=== PATIENT | female | born 1945 | race Caucasian/White ===

== ENCOUNTER 2019-04-17 14:26 | Emergency (ER) | payer MEDICARE, OTHER ==
--- NOTE | 2019-04-17 17:09 | ED ---
Allergic Reaction/Systemic - HPI Summary HPI Summary: This patient is a 73 year old F presenting to [facility] accompanied by female friend with a chief complaint of nausea and vomiting since 1330 today 04/17/19, per triage. Symptoms aggravated by nothing. Symptoms alleviated by nothing. Patient reports she was at a green party where she ate raw broccoli and cauliflower after which her whole esophagus filled up with gurgling stuff that was going up and down for 10 minutes. Pt reports she could not talk, was dizzy, her chest felt slightly heavy, and was slightly short of breath. Her female friend said she was diaphoretic and shaky. Denies hx chest problems, diabetes. Hx low blood pressure, Hypercholesterolemia. Denies heart attack in family at her age. Denies taking periodic medication. - History of Current Complaint Chief Complaint: EDNauseaVomitDiarrh Time Seen by Provider: 04/17/19 16:52 Hx Obtained From: Patient, Other: - female friend Onset/Duration: Started hours ago, Resolved Severity Currently: None Pain Intensity: 0 Pain Scale Used: 0-10 Numeric Aggravating Factor(s): Nothing Alleviating Factor(s): Nothing Associated Signs And Symptoms: Positive: Chest Pain - heavy chest, Diaphoresis, Difficulty Breathing - slightly SOB, Nausea, Vomiting, Other: - shakey, dizzy, could not talk - Allergies/Home Medications Allergies/Adverse Reactions: Allergies Allergy/AdvReac Type Severity Reaction Status Date / Time latex Allergy Rash Verified 04/17/19 14:32 Sulfa (Sulfonamide Allergy Unknown Verified 04/17/19 14:32 Antibiotics) Reaction Details PMH/Surg Hx/FS Hx/Imm Hx Endocrine/Hematology History: Denies: Hx Diabetes Musculoskeletal History: Reports: Hx Arthritis Sensory History: Reports: Hx Cataracts Opthamlomology History: Reports: Hx Cataracts - Surgical History Surgery Procedure, Year, and Place: kidney stone, tonsillectomy Infectious Disease History: No Infectious Disease History: Denies: Traveled Outside the [place] in Last 30 Days - Family History Known Family History: Positive: Other - uterine cancer, alzheimer's - Social History Alcohol Use: Occasionally Hx Substance Use: No Substance Use Type: Reports: None Hx Tobacco Use: No Smoking Status (MU): Never Smoked Tobacco Review of Systems Positive: Skin Diaphoresis, Other - shakey Positive: Other - could not talk Positive: Chest Pain - heavy Positive: Shortness Of Breath Positive: Vomiting, Nausea Neurological: Other - dizzy All Other Systems Reviewed And Are Negative: Yes Physical Exam - Summary Physical Exam Summary: VITAL SIGNS: Reviewed. GENERAL: Patient is a well-developed and nourished FEMALE who is lying comfortable in the stretcher. Patient is not in any acute respiratory distress. HEAD AND FACE: No signs of trauma. No ecchymosis, hematomas or skull depressions. No sinus tenderness. EYES: PERRLA, EOMI x 2, No injected conjunctiva, no nystagmus. EARS: Hearing grossly intact. Ear canals and tympanic membranes are within normal limits. MOUTH: Oropharynx within normal limits. NECK: Supple, trachea is midline, no adenopathy, no JVD, no carotid bruit, no c- spine tenderness, neck with full ROM. CHEST: Symmetric, no tenderness at palpation. LUNGS: Clear to auscultation bilaterally. No wheezing or crackles. CVS: Regular rate and rhythm, S1 and S2 present, no murmurs or gallops appreciated. ABDOMEN: Soft, non-tender. No signs of distention. No rebound, no guarding, and no masses palpated. Bowel sounds are normal. EXTREMITIES: FROM in all major joints, no edema, no cyanosis or clubbing. NEURO: Alert and oriented x 3. No acute neurological deficits. Speech is normal and follows commands. SKIN: Dry and warm. Triage Information Reviewed: Yes Vital Signs On Initial Exam: Initial Vitals Temp Pulse Resp BP Pulse Ox 97.8 F 64 16 206/86 99 04/17/19 14:28 04/17/19 14:28 04/17/19 14:28 04/17/19 14:28 04/17/19 14:28 Vital Signs Reviewed: Yes Procedures - Sedation Patient Received Moderate/Deep Sedation with Procedure: No Diagnostics - Vital Signs Vital Signs Temp Pulse Resp BP Pulse Ox 04/17/19 14:28 97.8 F 64 16 206/86 99 - Laboratory Result Diagrams: 04/17/19 17:02 04/17/19 17:02 Lab Statement: Any lab studies that have been ordered have been reviewed, and results considered in the medical decision making process. - Radiology Chest X-Ray Radiology Interpretation Completed By: Radiologist Summary of Radiographic Findings: Per radiologist,. No acute cardiopulmonary process by radiograph. ED physician has reviewed this imaging report. - EKG 1702 Cardiac Rate: NL - 73 BPM Summary of EKG Findings: EKG taken at 1702 reveals sinus rhythm at [address] elevation and normal axis. Allergic Reaction Course/Dx - Course Assessment/Plan: This patient is a 73 year old F presenting to [facility] accompanied by female friend with a chief complaint of nausea and vomiting since 1330 today 04/17/19, per triage. Symptoms aggravated by nothing. Symptoms alleviated by nothing. Patient reports she was at a green party where she ate raw broccoli and cauliflower after which her whole esophagus filled up with gurgling stuff that was going up and down for 10 minutes. Pt reports she could not talk, was dizzy, her chest felt slightly heavy, and was slightly short of breath. Her female friend said she was diaphoretic and shaky. Denies hx chest problems, diabetes. Hx low blood pressure, Hypercholesterolemia. Denies heart attack in family at her age. Denies taking periodic medication. In the ED course the patient is asymptomatic. Patient reports no chest pain, no nausea or vomiting, no abdominal pain. All her symptoms lasted for less than 2 minutes. Blood test results without any significant abnormality. Troponin is 0.01. Chest x-ray impression: No acute cardiopulmonary process. Chest x-ray impression: Is a sinus rhythm at [address] elevation. The heart score is equal to 2. Patient Continues to be asymptomatic. Patient reports that all symptoms have resolved. Because the patient has no significant comorbidities and no family history of cardiovascular disease at her age the patient will be discharged home with follow up of PMD. I discussed all the findings and test results with the patient. Patient was instructed to return to the emergency room immediately if any of the symptoms return or worsen. Patient understands and agrees. Plan of care was discussed with the patient and patient understands and agrees. All questions were answered at patient satisfaction. There were no further complaints or concerns. PE before discharge : CVS: S1 and S2 present. No murmurs appreciated. Abdominal exam before discharge: Soft, non-tender. No signs of distention. No rebound no guarding, and no masses palpated. Bowel sounds are normal. Patient is alert and oriented x 3. Patient is hemodynamically stable. - Diagnoses Provider Diagnoses: Atypical chest pain, Nausea and vomiting Discharge ED - Sign-Out/Discharge Documenting (check all that apply): Patient Departure - discharge - Discharge Plan Condition: Stable Disposition: HOME Patient Education Materials: Chest Pain (ED), Acute Nausea and Vomiting (ED) Referrals: Nidhi Torres MD [Primary Care Provider] - 3 Days - Billing Disposition and Condition Condition: STABLE Disposition: Home - Attestation Statements Document Initiated by Scribe: Yes Documenting Scribe: Mile Mejia Provider For Whom Scribe is Documenting (Include Credential): Dr. Juan Francis MD Scribe Attestation: Mile Pacheco scribed for Dr. Juan Francis MD on 04/18/19 at 1900. Scribe Documentation Reviewed: Yes Provider Attestation: The documentation as recorded by the Mile hernadez accurately reflects the service I personally performed and the decisions made by me, Dr. Juan Francis MD Status of Scribe Document: Viewed
[2019-04-17 17:12] LABS: ABS Eosinophils 0.1 10^3/ul (0-0.6); ABS Lymphocytes 1.3 10^3/ul (1.0-4.8); ABS Monocytes 0.5 10^3/ul (0-0.8); ABS Neutrophils 8.9 10^3/ul (1.5-7.7); Eosinophil % 0.5 %; Hematocrit 41 % (35-47); Hemoglobin 13.8 g/dL (12.0-16.0); Lymphocyte % 11.7 %; Mean Corpuscular HGB Conc 34 g/dL (31-36); Mean Corpuscular Hemoglobin 32 pg (27-31); Mean Corpuscular Volume 93 fL (80-97); Mean Platelet Volume 7.4 fL (7.4-10.4); Platelet Count 298 10^3/uL (150-450); Red Blood Count 4.39 10^6 /uL (3.70-4.87); Red Cell Distribution Width 13 % (10-15); White Blood Count 10.8 10^3/uL (3.5-10.8)
[2019-04-17 17:31] LABS: Albumin 4.3 g/dL (3.2-5.2); Albumin/Globulin Ratio 1.4 (1-3); BUN/Creatinine Ratio 17.6 (8-20); C Reactive Protein 2.47 mg/L (<8.01); Calcium 9.5 mg/dL (8.6-10.3); EGFR African American 93.6 (>60); EGFR Non-African American 77.4 (>60); Globulin 3.1 g/dL (2-4); Total Bilirubin 0.3 mg/dL (0.2-1.0); Total Protein 7.4 g/dL (6.4-8.9)
[2019-04-17 17:32] LABS: Troponin I 0.01 ng/mL (<0.03)
[2019-04-17 18:00] LABS: Potassium 3.8 mmol/L (3.5-5.0)
[2019-04-17 19:07] VITALS: BP 142/82
== END 2019-04-17 19:07 | disposition home or self-care (01) ==
LOC: ED 14:26
DX: R11.2 Nausea with vomiting, unspecified (principal); R07.89 Other chest pain; Z88.2 Allergy status to sulfonamides; Z91.040 Latex allergy status; Z87.442 Personal history of urinary calculi
CPT/HCPCS: 36415; 71045; 80053; 83605; 83690; 84484; 85025; 86140; 93005; 99282

== ENCOUNTER 2023-08-26 16:17 | Observation (INO) ==
[2023-08-26 16:52] LABS: ABS Basophils 0.1 10^3/uL (0.0-0.1); ABS Eosinophils 0.1 10^3/uL (0.0-0.5); ABS Lymphocytes 1.3 10^3/uL (1.0-4.8); ABS Monocytes 0.3 10^3/uL (0.0-0.9); ABS Neutrophils 5.8 10^3/uL (1.5-7.6); Eosinophil % 1.9 %; Hematocrit 39.5 % (35-45); Hemoglobin 13.2 g/dL (11.5-14.3); Lymphocyte % 17.4 %; Mean Corpuscular Hemoglobin 31.2 pg (27-33); Mean Corpuscular Hgb Conc 33.5 g/dL (31-36); Mean Corpuscular Volume 93.1 fL (80-97); Mean Platelet Volume 7.5 fL (7.5-11.2); Nucleated Red Blood Cells % 0.1 %/100WBC (0.0-0.8); Platelet Count 272 10^3/uL (150-450); Red Blood Count 4.24 10^6/uL (3.63-4.92); White Blood Count 7.7 10^3/uL (3.8-11.8)
[2023-08-26 17:30] LABS: Albumin 4.3 g/dL (3.2-5.2); Albumin/Globulin Ratio 1.8 (1-3); Calcium 9.6 mg/dL (8.6-10.3); Creatinine, Serum 0.88 mg/dL (0.51-0.95); Globulin 2.4 g/dL (2-4); Magnesium 2.2 mg/dL (1.9-2.7); Potassium 4.3 mmol/L (3.5-5.0); Total Bilirubin 0.5 mg/dL (0.2-1.0); Total Protein 6.7 g/dL (6.4-8.9); eGFR CKD-EPI 68.1 (>60)
[2023-08-26 18:41] LABS: INR 1.05 (0.83-1.13)
[2023-08-26 18:53] LABS: High Sensitivity Troponin 1 Hr 4 pg/mL (<15)
[2023-08-26 19:33] LABS: TSH Ultra Thyroid Stim Horm 1.8 mcIU/mL (0.34-5.60)
[2023-08-26 19:45] LABS: Vitamin D Total 25(OH) 45.9 ng/mL (20-50)
[2023-08-26] MEDS: Ondansetron 4 mg VIAL 2 MG/ML 2 ml VIAL IV PRN (23:14)
[2023-08-27] MEDS: Enoxaparin 40 MG/0.4 ML SYR SUBCUT SCH (00:41)
[2023-08-27 05:51] LABS: ABS Eosinophils 0.1 10^3/uL (0.0-0.5); ABS Lymphocytes 1.6 10^3/uL (1.0-4.8); ABS Monocytes 0.5 10^3/uL (0.0-0.9); ABS Neutrophils 5.8 10^3/uL (1.5-7.6); ABS Nucleated RBC 0.01 10^3/ul; Eosinophil % 0.9 %; Hematocrit 35.6 % (35-45); Lymphocyte % 20.2 %; Mean Corpuscular Hemoglobin 31.3 pg (27-33); Mean Corpuscular Hgb Conc 33.6 g/dL (31-36); Mean Corpuscular Volume 93.3 fL (80-97); Mean Platelet Volume 7.5 fL (7.5-11.2); Nucleated Red Blood Cells % 0.1 %/100WBC (0.0-0.8); Platelet Count 269 10^3/uL (150-450); Red Blood Count 3.82 10^6/uL (3.63-4.92); Red Cell Distribution Width 13.4 % (12-17)
[2023-08-27 06:41] LABS: Anion Gap 9 mmol/L (2-16); Blood Urea Nitrogen 14 mg/dL (6-24); CO2 Carbon Dioxide 25 mmol/L (22-32); Calcium 8.8 mg/dL (8.6-10.3); Chloride 106 mmol/L (101-111); Creatinine, Serum 0.79 mg/dL (0.51-0.95); Glucose 107 mg/dL (70-100); Sodium 140 mmol/L (135-145); eGFR CKD-EPI 77.5 (>60)
[2023-08-27] MEDS: Aspirin EC 81 mg TAB.EC (enteric coated) PO SCH (08:39)
[2023-08-27 13:25] VITALS: BP 127/66
== END 2023-08-27 13:25 | disposition home or self-care (01) ==
LOC: ED 16:17 → EDHOLD 16:17 → SUATTDRO 18:38 → EDHOLD 08-27 13:24
PROVIDERS: ADMIT Hospitalist; ATTEND Internal Medicine

== ENCOUNTER 2024-02-10 13:53 | Observation (INO) ==
[2024-02-10 15:09] LABS: ABS Lymphocytes 0.9 10^3/uL (1.0-4.8); ABS Monocytes 0.8 10^3/uL (0.0-0.9); Hematocrit 34.5 % (35-45); Hemoglobin 11.6 g/dL (11.5-14.3); Lymphocyte % 11.9 %; Mean Corpuscular Hemoglobin 30.6 pg (27-33); Mean Corpuscular Hgb Conc 33.5 g/dL (31-36); Mean Corpuscular Volume 91.4 fL (80-97); Mean Platelet Volume 7.7 fL (7.5-11.2); Platelet Count 232 10^3/uL (150-450); Red Blood Count 3.77 10^6/uL (3.63-4.92); Red Cell Distribution Width 12.9 % (12-17); White Blood Count 7.7 10^3/uL (3.8-11.8)
[2024-02-10] MEDS: Lactated Ringers 1000 ml BAG 1,000 ML IV ONE ×2 (15:30)
[2024-02-10 15:45] LABS: Albumin/Globulin Ratio 1.5 (1-3); Calcium 8.6 mg/dL (8.6-10.3); Creatinine, Serum 0.81 mg/dL (0.51-0.95); Globulin 2.7 g/dL (2-4); Potassium 3.7 mmol/L (3.5-5.0); Total Bilirubin 1.1 mg/dL (0.2-1.0); Total Protein 6.7 g/dL (6.4-8.9); eGFR CKD-EPI 75.2 (>60)
[2024-02-10 15:56] LABS: TSH Ultra Thyroid Stim Horm 0.3 mcIU/mL (0.34-5.60)
[2024-02-10 16:33] LABS: High Sensitivity Troponin 1 Hr 11 pg/mL (<15)
[2024-02-10 17:26] LABS: Urine Appearance Clear; Urine Bilirubin Negative (Negative); Urine Blood Negative (Negative); Urine Color Yellow; Urine Glucose Negative (Negative); Urine Ketones 2+ (Negative); Urine Nitrite Negative (Negative); Urine Protein Trace (Negative); Urine Specific Gravity 1.021 (1.002-1.030); Urine Urobilinogen Negative (Negative); Urine pH 5.5 (5.0-8.0)
[2024-02-10 23:41] LABS: Body Fluid Source Cerebral Spinal
[2024-02-11 00:09] LABS: CSF Glucose 64 mg/dL (40-70)
[2024-02-11 00:19] LABS: Body Fluid Appearance Clear; Body Fluid Color Colorless; CSF Tube # 4
[2024-02-11] MEDS: Piperacillin/Tazobac 3.375 BAG 3.375 GM/100 ML BAG IV ONE (00:44)
[2024-02-11 01:20] LABS: CSF Body Fluid WBC 15 /mcL
[2024-02-11 01:27] LABS: Body Fluid Mono 19 %; Body Fluid Total Cells Counted 200
[2024-02-11] MEDS ORDERED: Ondansetron 4 mg VIAL 2 MG/ML 2 ml VIAL IV PRN (01:32)
[2024-02-11 01:53] LABS: C Reactive Protein 1.83 mg/L (<8.01)
[2024-02-11] MEDS: Lactated Ringers 1000 ml BAG 1,000 ML IV ONE (02:04)
[2024-02-11 02:41] LABS: Free T4 0.86 ng/dL (0.61-1.12)
[2024-02-11] MEDS: Aspirin EC 81 mg TAB.EC (enteric coated) PO SCH (09:04)
[2024-02-12 05:40] LABS: ABS Lymphocytes 1.8 10^3/uL (1.0-4.8); ABS Monocytes 0.8 10^3/uL (0.0-0.9); ABS Neutrophils 5.5 10^3/uL (1.5-7.6); ABS Nucleated RBC 0.01 10^3/ul; Eosinophil % 0.4 %; Hemoglobin 10.8 g/dL (11.5-14.3); Lymphocyte % 21.6 %; Mean Corpuscular Hemoglobin 30.9 pg (27-33); Mean Corpuscular Hgb Conc 33.8 g/dL (31-36); Mean Corpuscular Volume 91.4 fL (80-97); Mean Platelet Volume 8.6 fL (7.5-11.2); Nucleated Red Blood Cells % 0.1 %/100WBC (0.0-0.8); Platelet Count 234 10^3/uL (150-450); Red Cell Distribution Width 12.9 % (12-17); White Blood Count 8.1 10^3/uL (3.8-11.8)
[2024-02-12 06:00] LABS: Calcium 8.3 mg/dL (8.6-10.3); Creatinine, Serum 0.69 mg/dL (0.51-0.95); Magnesium 2.1 mg/dL (1.9-2.7); Potassium 3.7 mmol/L (3.5-5.0); eGFR CKD-EPI 89.9 (>60)
[2024-02-12] MEDS: Enoxaparin 40 MG/0.4 ML SYR SUBCUT SCH (18:53)
[2024-02-12 22:45] LABS: HSV 1 PCR, CSF Negative (Negative); HSV 2 PCR, CSF Negative (Negative)
[2024-02-13 06:52] LABS: ABS Basophils 0.1 10^3/uL (0.0-0.1); ABS Eosinophils 0.1 10^3/uL (0.0-0.5); ABS Lymphocytes 1.8 10^3/uL (1.0-4.8); ABS Monocytes 0.9 10^3/uL (0.0-0.9); ABS Neutrophils 5.6 10^3/uL (1.5-7.6); ABS Nucleated RBC 0.01 10^3/ul; Eosinophil % 0.7 %; Hematocrit 31.2 % (35-45); Hemoglobin 10.9 g/dL (11.5-14.3); Lymphocyte % 21.3 %; Mean Corpuscular Hgb Conc 34.9 g/dL (31-36); Mean Corpuscular Volume 91.6 fL (80-97); Mean Platelet Volume 8.8 fL (7.5-11.2); Nucleated Red Blood Cells % 0.1 %/100WBC (0.0-0.8); Platelet Count 231 10^3/uL (150-450); Red Blood Count 3.41 10^6/uL (3.63-4.92); Red Cell Distribution Width 12.9 % (12-17); White Blood Count 8.5 10^3/uL (3.8-11.8)
[2024-02-13 07:04] LABS: Calcium 8.2 mg/dL (8.6-10.3); Creatinine, Serum 0.72 mg/dL (0.51-0.95); Potassium 3.6 mmol/L (3.5-5.0); eGFR CKD-EPI 86.6 (>60)
[2024-02-13 08:34] LABS: Anaplasma phagocytophilum Negative (Negative); B. miyamotoi PCR, B Negative (Negative); Babesia divergens/MO-1 Negative (Negative); Babesia ducani Negative (Negative); Ehrlichia chaffeensis Negative (Negative); Ehrlichia ewingii/canis Negative (Negative); Ehrlichia muris eauclairensis Negative (Negative)
[2024-02-13 09:48] VITALS: BP 110/67
[2024-02-13 14:32] LABS: B. burgdorferi PCR Negative (Negative); B. garinii/B. afzellii PCR Negative (Negative); Lyme Disease Source CSF
== END 2024-02-13 13:36 | disposition home or self-care (01) ==
LOC: EDHOLD 13:53 → ED 13:53 → MED 02-11 11:29
PROVIDERS: ADMIT Student in an Organized Health Care Education/Training Program; ATTEND Hospitalist